=== PATIENT | female | born 1995 | race African-American/Black ===

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

== ENCOUNTER 2020-02-22 06:54 | Emergency (ER) | payer MEDICAID ==
[~2020-02-22] VITALS: Ht 165.1 cm; Wt 53.0 kg
[2020-02-22] MEDS ORDERED: SODIUM CHLORIDE 0.9% 1,000 ML IV ONE (07:15)
[2020-02-22] MEDS ORDERED: LEVETIRACETAM 1000MG PREMIX 100 ML IV ONE (07:15)
[2020-02-22 08:55] LABS: CLARITY URINE CLEAR (CLEAR); COLOR URINE YELLOW (YELLOW); KETONES URINE NEGATIVE (NEGATIVE); LEUKOCYTE ESTERASE URINE NEGATIVE (NEGATIVE); NITRITE URINE NEGATIVE (NEGATIVE); OCCULT BLOOD URINE NEGATIVE (NEGATIVE); PROTEIN URINE 1+ (NEGATIVE); SPECIFIC GRAVITY URINE 1.022 (1.005-1.030); UROBILINOGEN URINE 0.2 E.U./dL (0.2-1.0)
[2020-02-22 08:59] LABS: BASOPHILS % 0.6 % (0.0-2.0); EOSINOPHILS % 2.2 % (0.0-5.0); HEMATOCRIT. 39.8 % (36.0-48.0); HEMOGLOBIN. 13.4 g/dL (12.0-16.0); LYMPHOCYTES % 18.2 % (20.0-50.0); MEAN CORPUSCULAR HEMOGLOBIN 31.4 pg (28.0-32.0); MEAN CORPUSCULAR VOLUME 93.3 fL (81.0-99.0); MEAN PLATELET VOLUME 9.3 fl (7.4-10.4); MONOCYTES % 6.8 % (2.0-8.0); NEUTROPHILS % 72.2 % (40.0-76.0); PLATELET 251 x1000/uL (130-400); RED BLOOD CELL COUNT 4.26 mill/uL (4.2-5.4); RED CELL DISTRIBUTION WIDTH 13.1 % (11.6-14.6)
[2020-02-22 09:04] LABS: CHLORIDE 107 mEq/L (98-107)
[2020-02-22 09:13] LABS: ETHANOL BLOOD < 10 mg/dL
[2020-02-22 09:57] LABS: HCG SCREEN NEGATIVE
[2020-02-22 10:12] LABS: *AMPHETAMINES SCREEN URINE NEGATIVE (NEGATIVE)
[2020-02-22 10:13] LABS: *BARBITURATES SCREEN URINE NEGATIVE (NEGATIVE); *BENZODIAZEPINES SCREEN URINE NEGATIVE (NEGATIVE); *COCAINE SCREEN URINE NEGATIVE (NEGATIVE); METHADONE URINE SCREEN NEGATIVE (NEGATIVE); OPIATES URINE SCREEN NEGATIVE (NEGATIVE); PHENCYCLIDINE URINE SCREEN NEGATIVE (NEGATIVE)
[2020-02-22 10:14] LABS: CANNABINOID URINE SCREEN PRESUMTIVE POSITIVE (NEGATIVE)
[2020-02-22 13:07] VITALS: BP 110/71
== END 2020-02-22 13:10 | disposition home or self-care (01) ==
LOC: ER 06:54
DX: R56.9 Unspecified convulsions (principal)
CPT/HCPCS: 36415; 70450; 80053; 80305; 80320; 81003; 81025; 84703; 85025; 93005; 96361; 96365; 99285; J1953; J7030; G0480

== ENCOUNTER 2024-11-30 18:11 | Emergency (ER) | payer MEDICAID, OTHER ==
[~2024-11-30] VITALS: Ht 152.4 cm; Wt 50.0 kg
[2024-11-30 18:13] VITALS: O2SAT 98
[2024-11-30 19:22] LABS: BASOPHILS % 0.6 % (0.0-2.0); EOSINOPHILS % 2.0 % (0.0-5.0); HEMATOCRIT. 38.0 % (36.0-48.0); HEMOGLOBIN. 12.4 g/dL (12.0-16.0); LYMPHOCYTES % 21.8 % (20.0-50.0); MEAN PLATELET VOLUME 8.9 fl (7.4-10.4); MONOCYTES % 8.7 % (2.0-8.0); NEUTROPHILS % 66.9 % (40.0-76.0); PLATELET 283 x1000/uL (130-400); RED BLOOD CELL COUNT 4.18 mill/uL (4.2-5.4); RED CELL DISTRIBUTION WIDTH 16.7 % (11.6-14.6)
[2024-11-30] MEDS: LEVETIRACETAM 1000MG PREMIX 100 ML IV ONE (19:27)
[2024-11-30] MEDS: SODIUM CHLORIDE 0.9% 1,000 ML IV ONE (19:27)
[2024-11-30 19:35] LABS: CREATININE 0.8 mg/dL (0.6-1.0); HCG SCREEN NEGATIVE
[2024-11-30 19:36] LABS: ETHANOL BLOOD < 10 mg/dL (<10); UREA NITROGEN BLOOD 11 mg/dL (9-23)
[2024-11-30 19:37] LABS: ASPARTATE AMINOTRANSFERASE 12 IU/L (<34)
[2024-11-30 19:38] LABS: BILIRUBIN DIRECT < 0.1 mg/dL (<=3.0); BILIRUBIN TOTAL 0.3 mg/dL (0.1-1.0); PROTEIN TOTAL 7.5 g/dL (6.0-8.3)
[2024-11-30] MEDS ORDERED: KEPP500 MT (20:48)
[2024-11-30 21:18] VITALS: BP 123/85; PULSE 78; RESP 16; TEMP 36.6; O2SAT 99
== END 2024-11-30 21:23 | disposition home or self-care (01) ==
LOC: ER 18:11
DX: G40.909 Epilepsy, unspecified, not intractable, without status epilepticus (principal); F12.90 Cannabis use, unspecified, uncomplicated
CPT/HCPCS: 80076; 80048; 80320; 84703; 85025; 36415; 96374; 99284; J1953; J7030; G0480